=== PATIENT | male | born 1950 | race Caucasian/White ===

== ENCOUNTER 2018-09-11 13:14 | Inpatient (IN) | payer OTHER, MEDICARE ==
--- NOTE | 2018-09-13 06:15 | PDHPUP ---
History & Physical Update H&P update statement: This history and physical update is based on an assessment of the patient which was completed after admission or registration (within 24 hours), but prior to the surgery/procedure. H&P update: H&P reviewed & patient examined, no change in patient's condition since H&P completed
[2018-09-13] MEDS ORDERED: ALBUTEROL 60 PUFFS/8 GM MDI IH PRN (07:51)
[2018-09-13] MEDS ORDERED: ACETAMINOPHEN 500 MG TAB PO ONE (07:51)
[2018-09-13] MEDS ORDERED: AZITHROMYCIN 250 MG TAB PO SCH (07:51)
[2018-09-13] MEDS ORDERED: GABAPENTIN 300 MG CAP PO ONE (07:51)
[2018-09-13] MEDS ORDERED: ceFAZolin 2 GM/DEXTROSE 100 ML IV ONE (07:51)
[2018-09-13] MEDS ORDERED: LR 1,000 ML IV ONE (07:57)
[2018-09-13] MEDS ORDERED: THROMBIN (BOVINE) 20,000 UNIT VIAL TP ONE (07:57)
[2018-09-13] MEDS ORDERED: BUPIVACAINE 0.25% 30 ML SDV ONE (07:57)
[2018-09-13] MEDS ORDERED: CHLORHEXIDINE GLUC HIBICLENS 118 ML BTL TP ONE (07:57)
[2018-09-13] MEDS ORDERED: EPINEPHrine 1 MG/ML INJ ONE (07:58)
[2018-09-13] MEDS ORDERED: FAMOTIDINE 20 MG TAB PO SCH (09:00)
[2018-09-13] MEDS ORDERED: TIOTROPIUM INHALER 18 MCG/DOSE 5 DOSE/MDI IH SCH (09:00)
--- NOTE | 2018-09-13 09:40 | PDANEPAE ---
ANE History of Present Illness spondylo s/f TLIF ANE Past Medical History - Cardiovascular History Hx Hypertension: Yes Hx Arrhythmias: No Hx Chest Pain: No Hx Coronary Artery / Peripheral Vascular Disease: No Hx CHF / Valvular Disease: No Hx Palpitations: No Cardiovascular History Comment: RAYNAUDS - Pulmonary History Hx COPD: Yes Hx Asthma/Reactive Airway Disease: No Hx Recent Upper Respiratory Infection: No Hx Oxygen in Use at Home: No Hx Sleep Apnea: No Sleep Apnea Screening Result - Last Documented: Negative Pulmonary History Comment: INHALERS - Neurologic History Hx Cerebrovascular Accident: No Hx Seizures: No Hx Dementia: No - Endocrine History Hx Diabetes: Yes Endocrine History Comment: METFORMIN - Renal History Hx Renal Disorders: No - Liver History Hx Hepatic Disorders: No - Neurological & Psychiatric Hx Hx Neurological and Psychiatric Disorders: No - Cancer History Hx Cancer: No - Congenital Disorder History Hx Congenital Disorders: No - GI History Hx Gastrointestinal Disorders: Yes Gastrointestinal History Comment: FAMOTIDINE FOR STOMACH IRRITATION - Other Health History Other Health History: SCLERADERMA - Chronic Pain History Chronic Pain: Yes (BACK,HIP & LEG) - Surgical History Prior Surgeries: NO SURGERIES ANE Review of Systems Review of Systems: - Exercise capacity METS (RN): 3 METS ANE Patient History - Allergies Allergies/Adverse Reactions: Penicillins Allergy (Verified 08/31/18 10:19) Hives simvastatin [From Zocor] Allergy (Verified 08/31/18 10:19) Joints Hurt - Home Medications Home medications: home medication list seen and reviewed Home Medications: Acetaminophen [Tylenol 325mg (*)] 325 mg PO Q6HRS PRN 08/31/18 [Last Taken 09/12] Albuterol [Proventil Inhaler HFA (*)] 1 - 2 puffs IH Q4H PRN 08/31/18 [Last Taken 09/13/18] Atorvastatin Calcium [Lipitor 20 mg (*)] 20 mg PO DAILY 08/31/18 [Last Taken ] Azithromycin 250 mg PO SUWE 08/31/18 [Last Taken 09/12/18] C/E/Zn/Cu/OM3/DHA/EPA/LUT/ZEAX [Preservision Areds 2 Softgel] 1 each PO DAILY [Last Taken 1 Week Ago ~09/06/18] DULoxetine [Cymbalta 20 MG (RX)] 20 mg PO DAILY 08/31/18 [Last Taken 09/13/18] Famotidine [Pepcid 20 MG (*)] 20 mg PO DAILY 08/31/18 [Last Taken 09/13/18] Gabapentin [Neurontin 300 MG (*)] 300 mg PO HS 08/31/18 [Last Taken 09/12/18] Ibuprofen [Motrin (*)] 200 mg PO Q8HRS PRN 08/31/18 [Last Taken 1 Week Ago ~] Mometasone/Formoterol [Dulera 200 Mcg/5 Mcg Inhaler] 2 puffs IH BID 08/31/18 [ Last Taken 09/13/18] Tamsulosin HCl [Flomax 0.4 MG (*)] 0.4 mg PO HS 08/31/18 [Last Taken 09/12/18] Tiotropium Inhaler [Spiriva Inhaler] 2 inh IH DAILY 08/31/18 [Last Taken ] amLODIPine BESYLATE [Norvasc 2.5 mg (*)] 2.5 mg PO DAILY 08/31/18 [Last Taken ] metFORMIN HCL [Glucophage 500 mg (*)] 500 mg PO BIDMEAL 08/31/18 [Last Taken ] predniSONE [predniSONE] 10 mg PO DAILY 08/31/18 [Last Taken 09/13/18] - NPO status NPO Status: no food or drink >8 hours NPO Since - Liquids (Date): 09/12/18 NPO Since - Liquids (Time): 23:59 NPO Since - Solids (Date): 09/12/18 NPO Since - Solids (Time): 17:00 - Anes Hx Anes Hx: no prior problems - Smoking Hx Smoking Status: Former smoker - Alcohol Use Alcohol Use: None - Family Anes Hx Family Anes Hx: none Family Hx Anesthesia Complications: NONE ANE Labs/Vital Signs - Labs - CBC WBC: in chart, reviewed and okay - Labs - BMP Sodium: in chart, ok - Vital Signs Blood Pressure: 164/90 Heart Rate: 80 Respiratory Rate: 16 O2 Sat (%): 97 Height: 167.64 cm Weight: 58.967 kg ANE Physical Exam - Airway Neck exam: FROM Mallampati Score: Class 2 Mouth exam: normal dental/mouth exam - Pulmonary Pulmonary: expiratory wheeze - Cardiovascular Cardiovascular: regular rate and rhythym - ASA Status ASA Status: III ANE Anesthesia Plan Anesthesia Plan: general endotracheal anesthesia
[2018-09-13] MEDS ORDERED: MAGNESIUM HYDROXIDE 30 ML UDCUP PO PRN (09:44)
[2018-09-13] MEDS ORDERED: NALOXONE HCL 0.4 MG/ML INJ IVP PRN ×2 (09:44→14:34)
[2018-09-13] MEDS ORDERED: HYDROmorphONE/DILAUDID 6 MG/30 ML PCA IV PRN (09:44)
[2018-09-13] MEDS ORDERED: BISACODYL 10 MG SUPP PR PRN (09:44)
[2018-09-13] MEDS ORDERED: HYDROmorphONE/DILAUDID 1 MG/ML INJ IVP PRN (09:44)
[2018-09-13] MEDS ORDERED: ONDANSETRON DISINTEGRATING 4 MG TAB PO PRN (09:44)
[2018-09-13] MEDS ORDERED: ONDANSETRON 4 MG/2 ML VIAL IVP PRN ×2 (09:44→14:34)
[2018-09-13] MEDS ORDERED: LACTULOSE 20 GM/30 ML UDCUP PO PRN (09:44)
[2018-09-13] MEDS ORDERED: diphenhydrAMINE 25 MG CAP PO PRN (09:44)
[2018-09-13] MEDS ORDERED: NS 1,000 ML IV SCH (09:45)
[2018-09-13] MEDS ORDERED: fentaNYL 100 MCG/2 ML INJ ONE ×3 (09:54→16:51)
[2018-09-13] MEDS ORDERED: REMIFENTANIL HCL 1 MG VIAL ONE ×2 (09:54→12:42)
[2018-09-13] MEDS ORDERED: PROPOFOL/EMULSION 500 MG/50 ML BOTTLE IV ONE ×2 (09:54→12:42)
[2018-09-13] MEDS ORDERED: LIDOCAINE 2% 100 MG/5 ML SYR ONE (09:57)
[2018-09-13] MEDS ORDERED: LIDOCAINE HCL 160 MG/4 ML LTA KIT TP ONE (09:59)
[2018-09-13] MEDS ORDERED: ePHEDrine SULFATE 25 MG/5 ML SYR ONE (10:03)
[2018-09-13] MEDS ORDERED: PHENYLEPHRINE 10 MG/ML SDV ONE ×2 (10:17→13:04)
[2018-09-13] MEDS ORDERED: DEXAMETHASONE 4 MG/ML VIAL ONE ×2 (11:48)
[2018-09-13] MEDS ORDERED: ONDANSETRON 4 MG/2 ML VIAL ONE (11:48)
--- NOTE | 2018-09-13 14:02 | PDMN ---
Medical Necessity Medical necessity: [facility] IP only surgery; cpt 27363 L4/S1 TLIF
[2018-09-13] MEDS ORDERED: DEXAMETHASONE 4 MG/ML VIAL IVP PRN (14:34)
[2018-09-13] MEDS ORDERED: DIAZEPAM 5 MG/ML 1 ML SYR IVP PRN (14:34)
[2018-09-13] MEDS ORDERED: MEPERIDINE 25 MG/0.5 ML AMP IVP PRN (14:34)
[2018-09-13] MEDS ORDERED: HYDROCODONE/APAP 5/325 TAB PO PRN (14:34)
[2018-09-13] MEDS ORDERED: ACETAMINOPHEN 500 MG TAB PO PRN (14:34)
[2018-09-13] MEDS ORDERED: PHENYLEPHRINE HCL 100 MCG/ML SYR IVP PRN (14:34)
[2018-09-13] MEDS ORDERED: METOCLOPRAMIDE 10 MG/2 ML VIAL IVP PRN (14:34)
[2018-09-13] MEDS ORDERED: ALBUTEROL 3 ML DEYVIAL IH PRN (14:34)
[2018-09-13] MEDS ORDERED: LR 500 ML IV PRN (14:34)
[2018-09-13] MEDS ORDERED: oxyCODONE IR 5 MG TAB PO PRN (14:34)
[2018-09-13] MEDS ORDERED: PROMETHAZINE HCL 25 MG/ML INJ IVP PRN (14:34)
[2018-09-13] MEDS ORDERED: ENALAPRILAT DIHYDRATE 1.25 MG/ML VIAL IVP PRN (14:34)
--- NOTE | 2018-09-13 14:53 | POSTOPPROG ---
Post Op Note Date of Operation: 09/13/18 Surgeon: Diego Worley Billet Grinder: FROYLAN Jansen Anesthesiologist: MD Qasim Anesthesia: GET(General Endotracheal), Local (Specify) Pre-op Diagnosis: lumbar stenosis L4-S1 Post-op Diagnosis: lumbar stenosis L4-S1 Indication: LE pain/LBP Procedure: L4/5 and L5/S1 TLIF Findings: see op report Inf/Abcess present in the surg proc area at time of surgery?: No Depth: Deep Incisional (Fascial) EBL: 100-500 Total fluids administered: see anesthesia record Complications: none Bowel Protocol: Yes Clean Closure Performed: Yes Drains: Reynaldo Mendoza
--- NOTE | 2018-09-13 14:57 | SOAPPROG ---
SOAP Progress Note Assessment/Plan: Post Op Visit: S: Awake and alert. NAD. Pt with expected lower back pain O: AFVSS/PERRLA/EOMI no droop CN 2-12 grossly intact +lt touch MOR x [address] A/P: 68 yo male that is s/p TLIF at L4/5 and L5/S1 -orders in place -call with any questions or concerns -pt seen by Dr Worley as well -PT/OT -brace when out of bed -warning signs given Objective: Vital Signs Temp Pulse Resp BP Pulse Ox 36.5 C 80 16 164/90 H 97 09/13/18 08:19 09/13/18 09:40 09/13/18 09:40 09/13/18 09:40 09/13/18 09:40 ICD10 Worksheet Patient Problems: Problems Problem Status Onset Arthrodesis status Acute Lumbar radicular pain Acute Lumbar stenosis Acute - ICD10 Problem Qualifiers (1) Lumbar stenosis (2) Lumbar radicular pain (3) Arthrodesis status
[2018-09-13] MEDS: fentaNYL 100 MCG/2 ML INJ IVP PRN ×3 (15:16→16:53)
[2018-09-13] MEDS ORDERED: DIAZEPAM 5 MG/ML 1 ML SYR ONE (15:28)
[2018-09-13] MEDS: Mometasone/Formoterol [Dulera 200 Mcg/5 Mcg Inhaler] IH SCH ×2 (15:45→22:00)
[2018-09-13] MEDS ORDERED: HYDROmorphONE/DILAUDID 2 MG/ML INJ ONE (16:15)
[2018-09-13] MEDS ORDERED: oxyCODONE IR 5 MG TAB ONE (16:16)
[2018-09-13] MEDS ORDERED: HYDROmorphONE/DILAUDID 2 MG/ML INJ IVP PRN (16:30)
--- NOTE | 2018-09-13 17:29 | POSTANESTH ---
Post Anesthetic Evaluation Cardiovascular Status: Normal, Stable Respiratory Status: Normal, Stable, Tx Decrease in SpO2 Level of Consciousness/Mental Status: Can Participate in Eval Pain Control: Adequate, Prn Tx Ordered Nausea/Vomiting Control: Adequate, Prn Tx Ordered Complications Possibly Related to Anesthesia: None Noted
[2018-09-13] MEDS ORDERED: D50W 25 GM/50 ML SYR IVP PRN (18:00)
[2018-09-13] MEDS ORDERED: NS 250 ML IV ONE (18:01)
[2018-09-13] MEDS: METHOCARBAMOL 750 MG TAB PO PRN (18:07)
[2018-09-13] MEDS: HYDROCODONE/APAP 5/325 TAB PO PRN (18:07)
[2018-09-13] MEDS: ceFAZolin 2 GM/DEXTROSE 100 ML IV SCH (18:07)
[2018-09-13] MEDS: PRESERVISION AREDS2 FORMULA EYE VIT 1 EACH PO SCH (18:22)
[2018-09-13] MEDS: predniSONE 10 MG TAB PO SCH (18:22)
[2018-09-13] MEDS: DULoxetine 20 MG CAP PO SCH (18:22)
[2018-09-13] MEDS: ATORVASTATIN CALCIUM 20 MG TAB PO SCH (18:22)
[2018-09-13] MEDS: INSULIN LISPRO 100 UNIT/ML SC SCH (18:23)
--- NOTE | 2018-09-13 18:31 | GOP ---
[f rep st] OPERATIVE REPORT DATE OF OPERATION: SURGEON: Natalia Worley MD NEUROSURGEON: Natalia Worley MD. TEST TECH: Siddhartha Jansen PA-C. PREOPERATIVE DIAGNOSIS: Lumbar degenerative disk disease, L4-5, L5-S1; severe bilateral lumbosacral radiculopathy, left more than right; severe spinal stenosis at L4-5; severe bilateral facet arthropathy L4-5; severe right foraminal stenosis L4-5; severe left foraminal stenosis L5-S1. POSTOPERATIVE DIAGNOSIS: Lumbar degenerative disk disease, L4-5, L5-S1; severe bilateral lumbosacral radiculopathy, left more than right; severe spinal stenosis at L4-5; severe bilateral facet arthropathy L4-5; severe right foraminal stenosis L4-5; severe left foraminal stenosis L5-S1. PROCEDURE PERFORMED: Posterolateral intervertebral arthrodesis, L4-5, L5-S1 and bilateral decompressions, L4-5, L5-S1 (35105, [id number]); posterior segmental instrumentation L4-L5-S1 (90764); placement of biomechanical intervertebral device L4-5, L5-S1 (58533 x2); same-incision bone graft harvest, microscope, spinal stereotaxis. FINDINGS: ESTIMATED BLOOD LOSS: 200 mL. INDICATIONS: The patient came to me with severe bilateral lumbosacral radiculopathy. An MRI that demonstrated really remarkably terrible degenerative disk disease at L4-5, L5-S1 with degenerative right-sided tilt of L4 on L5, with very severe right foraminal stenosis. There is severe left foraminal stenosis at L5-S1. An MRI demonstrated what appeared to be a free- disk fragment herniation on the left at L5-S1. I suggested a 2-level fusion to try to get some elevation of his vertebral bodies off one another at L4-5, 5-1 to open up the neural foramen. He did have some measure of stenosis at L3-4, but I characterized as mild to moderate and was not sufficient to warrant surgery, but I discussed with him the possibility that he may require surgery in the future at that level. He had a history of nicotine use and was using nicotine because of a prior smoking habit, but he was able to successfully stop using nicotine prior to the surgery and we tested him in this regard. The risks of pseudoarthrosis, adjacent segment disease, nerve injury, continued symptoms, CSF leak, infection, screw and hardware malposition and malfunction were discussed. He understood these risks and he did want to proceed with surgery. DESCRIPTION OF PROCEDURE: The patient was taken to the operating room and placed in a supine position. General anesthesia was begun and he was flipped prone onto the Reynaldo table. Care was taken to pad all points of contact. His back was sterilely prepped and draped in the usual fashion. A localizing x- ray was taken. We made a midline incision. It was about 3.5 to 4 cm in length above the L4-5, 5-1 interspace. The subcutaneous tissue was dissected using Bovie cautery down through the fascia and a subperiosteal dissection was made down the inferior lamina at L3. The lamina of L4, L5 and S1 was exposed. The S1 lamina was partially lumbarized and there appeared to be a space between the S1 and S2 laminas. I did not thoroughly probe this area below our surgical exposure, but did appear to have a lumbarized S1 lamina. We denuded the bilateral hypertrophic 4-5, 5-1 facet joints, attached the Stealth reference frame and using frame of Stealth stereotaxy, placed pedicle screws bilaterally at L4-L5 and the sacrum. We then attached the Stealth reference frame and using frame of Stealth stereotaxy, placed pedicle screws bilaterally at L4-L5 and the sacrum. They all stimulated at acceptable levels. The right S1 pedicle was exceptionally large. The left S1 pedicle was nearly as large, but I chose a 6.5 on the left, but on the right I chose a 7.5 mm pedicle screw. There was good bony purchase, but his bone quality did seem somewhat soft and possibly due to chronic steroid use. We put all 6 screws in, performed an O- arm spin and all the screws were in excellent position. They all stimulated acceptable levels. We ended up driving the left L4 screw in slightly deeper after the spin was made by about 6 to 7 mm deeper. We did verify on imaging that we had this kind of leeway on the left at L4. Took 50 mm rods and gently distracted between L4-5 and S1. We did not vigorously distract between these vertebral bodies because of his somewhat softer bone, but with they were easily moved and I was happy with the position. We locked the screws according to company specification in this position. We then harvested the complete L5 spinous process and the inferior L4 spinous process for autologous grafting purposes. Operating microscope was introduced. We drilled bilateral laminectomies at L4-5, L5-S1, and there was very severe spinal stenosis present. Under the microscope, we decompressed the thecal sac centrally initially and then worked our way into the lateral recesses on each side. We did not have really any difficulty at L5-S1, but at L4-5, there was significant dural adhesions to the hypertrophic facet joints, as one can find from longstanding severe stenosis. We were able to eventually free these and dissect them free and we got great decompressions at this level. We completely removed the left L4-5 and L5-S1 facet joint, decompressed the exiting L4 nerve root on the left, the exiting L5 nerve root on the left and then we spent a considerable time looking and inspecting the area around the left L5 nerve root at the 5-1 level where it exited the spine. We incised the 5-1 disk and removed some of the disk, and the MRI suggested there was a free fragment disk herniation underneath the 5 root, and it was quite interesting, the left 5 nerve root appeared either quite thickened for encased in scar. We were able to dissect it free at L4-5 and follow it in the neural foramen, but I did not find a large free fragment disk underneath it. There was some disk emanating from the 5-1 disk that did appear to go slightly rostrally towards this L5 nerve on the left and we removed this material. We were able to sweep a ball- tip probe on either side, both the rostral and caudal side of the nerve root and on the dorsal and ventral side of the nerve root out in the neural foramina. We had a great decompression of the left L5 nerve, but it did have an unusual appearance. It was extremely large and thick and it appeared that we had a great decompression. Later in the case, I reinspected this area and we saw an occasional burst of firing from the 5 root as I was dissecting it with the ball-tipped probe, but we saw no train firing or evidence of injury potentials. We ultimately then swept the left S1 nerve root medially, incised the 5-1 disk, removed the disk and the cartilaginous endplates. We roughened the subchondral bone to create arthrodesis at 5-1. We did likewise from the left side at L4-5, incising the 4-5 disk and removing the disk and the cartilaginous endplates completely. We roughened the subchondral bone to create arthrodesis. We then sized the space with trials, which we were able to insert without difficulty and chose 7 x 28 mm devices. We packed the disk space with BMP and bone autograft and then followed this with the two 7 x 28 mm devices, which we were able to insert really without difficulty. They were expanded in the ventral disk space and I was very happy with their positioning. We then irrigated with antibiotic saline solution, decorticated all the remaining bone posterolaterally bilaterally to create arthrodesis and placed bone morphogenic protein and bone autograft posterolaterally bilaterally followed by a subfascial drain. We then closed the incision in multiple layers using Vicryl sutures. A running PDS was placed in the skin itself. The patient was reversed from anesthesia, extubated and transferred to the recovery room in stable condition. There were no complications. COMPLICATIONS: None. INSTRUMENTATION USED: Medtronic Solara 5.5 mm system with a 50 mm rods. We used 4 mg of bone morphogenic protein. We used two 7 x 28 mm Elevate cages. We used 6.5 x 45 mm screws throughout except the right S1 pedicle, where we used a 7.5 mm screw. /[id number]/MODL MTDD
--- NOTE | 2018-09-13 18:41 | GCON ---
[f rep st] CONSULTATION REFERRING PHYSICIAN: Dr. Worley REASON FOR CONSULTATION: Medical management. HISTORY OF PRESENT ILLNESS: The patient is a 68-year-old gentleman who has a history of COPD, who is chronic steroid dependent, as well as scleroderma and Raynaud disease. He is status post a TLIF of L4-5 and L5 and S1, due to chronic back pain. 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 Pain had been ongoing bilaterally in his hips and down his legs. He has participated in physical therapy and has had steroid injections without significant help. He also has ongoing neuropathy in which he takes Cymbalta and gabapentin. During my interview, he is back up from back surgery. He is not complaining of any pain. Overall, he is feeling well and is hungry. He denies any chest pain, is chronically short of breath with activity. No changes in vision, weight, regular bowel movements, no issues with urinary retention, frequency, urgency. PAST MEDICAL HISTORY: 1. Steroid-induced diabetes, on metformin. 2. Chronic COPD, on prednisone and p.r.n. azithromycin. 3. Scleroderma. 4. Raynaud disease. PAST SURGICAL HISTORY: None. SOCIAL HISTORY: He is a former smoker for 20 years; quit smoking greater than 25 years ago. He chews nicotine gum, but recently has quit using this. He does not drink alcohol. for 39 years. He has 1 daughter and 1 granddaughter. He quit his job approximately a year and a half ago. He ran heavy outdoor equipment. FAMILY HISTORY: His mother of complications of colon cancer and alcohol use in her 60s. His father in his mid 60s from complications of alcohol. ALLERGIES: Penicillin and simvastatin. HOME MEDICATIONS: Prednisone 10 mg daily, Norvasc 2.5 mg daily, Pepcid 20 mg daily, Lipitor 20 mg daily, metformin 500 mg p.o. twice daily, Spiriva inhaler 2 inhalations daily, Flomax 0.4 mg p.o. at bedtime, Neurontin 300 mg at bedtime , Cymbalta 20 mg daily, azithromycin 250 mg p.o. Sundays and Tuesday, Dulera 2 puffs inhalation twice daily, ibuprofen 200 mg q.8 hours p.r.n., albuterol inhaler 1 to 2 puffs q.4 hours p.r.n., and Tylenol 325 mg q.6 hours p.r.n. REVIEW OF SYSTEMS: A 10-point review of system was performed and was negative other than pertinent positives in the HPI and past medical history. PHYSICAL EXAM: GENERAL: The patient is a 68-year-old male who does not appear to be in any significant distress. VITAL SIGNS: Blood pressure is 82/59, heart rate of 101, respiratory rate of 18, O2 sats on 3 L are 90%, temperature is 36.9 Celsius. EYES: He is wearing glasses. Pupils are equal and reactive. EOMs are intact. No conjunctival injection noted. ENT: Normal ears. Hearing intact. NECK: Trachea is midline. CARDIOVASCULAR: He is in a regular rate. No murmur, rubs, or gallops noted. CHEST/LUNGS: Normal respiratory effort without wheezing, rales, or rhonchi. Diminished at the bases. ABDOMEN: Soft, nontender. SKIN: Warm, dry and intact. I did not evaluate his back area. He is just up from surgery. MUSCULOSKELETAL: Again, not evaluated. He has significant coolness to his hands. His fingers are firm and rounded with very poor cap refill. PSYCHIATRIC: He is alert and oriented. Normal mood and affect. Normal judgment, insight and memory. DATA: Reviewed. Chemistry shows glucose of 133. No other labs are noted on this hospital stay. ASSESSMENT/PLAN: 1. Chronic back pain with neuropathy. He is status post a transforaminal lumbar interbody fusion. He is very hopeful this will help with his activity level. 2. Pain. Due to the above, pain medications have been written out per Neurosurgery. 3. Hyperglycemia secondary to prednisone use. He was never really truly diagnosed with diabetes type 2. Will hold his metformin until labs are checked in the morning. Will place him on a sliding scale. 4. Chronic obstructive pulmonary disease. Will continue Spiriva. He took his prednisone today. I doubt he will need a stress dose unless he continues to be hypotensive. Will add nebulizers and incentive spirometry. 5. Hypotension. He is just back up from postanesthesia care unit. Suspect this could be related to narcotics. Will follow. Will give a fluid bolus now. 6. Hyperlipidemia. Statin therapy. 7. Deep venous thrombosis prophylaxis per Neurosurgery. 8. Raynaud disease. He is on [facility] for this. Will place parameters as when to hold this. 9. Scleroderma. Is seen by Dr Delong in the outpatient setting. 10. Code status: Full. Thank you for this consultation with the patient. The hospitalist team will continue to follow him during his hospital stay. /[id number]/MODL MTDD
[2018-09-13] MEDS: TAMSULOSIN HCL 0.4 MG CAP PO SCH (21:21)
[2018-09-13] MEDS: GABAPENTIN 300 MG CAP PO SCH (21:22)
[2018-09-13] MEDS: SENNOSIDES/DOCUSATE SODIUM TAB PO SCH (21:22)
[2018-09-13] MEDS: IPRATROPIUM/ALBUTEROL 3 ML DEYVIAL IH SCH (21:58)
[2018-09-14] MEDS: ceFAZolin 2 GM/DEXTROSE 100 ML IV SCH (01:39)
[2018-09-14] MEDS: HYDROCODONE/APAP 5/325 TAB PO PRN ×5 (01:42→22:58)
[2018-09-14 05:14] LABS: PLATELET COUNT 247 10^3/uL (150-400)
[2018-09-14] MEDS: IPRATROPIUM/ALBUTEROL 3 ML DEYVIAL IH SCH ×4 (07:06→23:43)
--- NOTE | 2018-09-14 07:52 | NEUSURGPN ---
Date of Surgery: 09/13/18 Post Op Day: 1 Assessment/Plan: Assessment: 68 yo male that is s/p TLIF at L4/5 and L5/S1 POD #1 Plan: -s/p L spine surgery: doing well this am. Pt states legs feel better. He has some expected lower back pain -post op xrays pending today -orders in place -call with any questions or concerns -pt seen by Dr Worley as well -PT/OT-CPM -brace when out of bed -SANJANA to likely come out later today -d/w pt and -warning signs given Subjective: Awake and alert. NAD. Eating/drinking and voiding. No f/c/n/v/d. Pt with expected lower back pain. Legs feel good Objective: Awake and alert. NAD AFVSS/PERRLA/EOMI no droop CN 2-12 grossly intact +lt touch 5/5 BUE/BLE = CDI SANJANA in place Neuro Check Frequency: per routine Urinary Catheter in Place: No - Physician Discussed Patient with DrAnnette: Meir Patient Seen by : Meir Neurosurgery Physical Exam - Vitals, I&O, Labs I and O 09/13/18 09/14/18 09/15/18 05:59 05:59 05:59 Intake Total 4195 Output Total 1730 2800 Balance 2465 -2800 Weight 58.967 kg Intake: Oral (ml) 350 IV Intake (ml) 2400 IV Infused (ml) 1445 Ns 1,000 ml @ 75 mls/hr 990 IV CONT JOSEFINA Rx#: [id number] Ns 250 ml @ 250 mls/hr IV 250 ONCE ONE Rx#:[id number] ceFAZolin 2 GM/DEXTROSE 205 100 ml @ 200 mls/hr IV Q8H [facility] Rx#:[id number] Output: Urine (ml) 1000 2800 Catheter 1000 2800 Estimated Blood Loss (ml) 250 SANJANA Drain Output (ml) 480 Back Reynaldo Mendoza 480 Vital Signs Temp Pulse Resp BP Pulse Ox 36.7 C 71 17 95/54 L 95 09/14/18 07:32 09/14/18 07:32 09/14/18 07:32 09/14/18 07:32 09/14/18 07:32 Laboratory Results 09/14/18 04:23 09/14/18 04:23 ICD10 Worksheet Patient Problems: Problems Problem Status Onset Arthrodesis status Acute Lumbar radicular pain Acute Lumbar stenosis Acute - ICD10 Problem Qualifiers (1) Lumbar stenosis (2) Lumbar radicular pain (3) Arthrodesis status
[2018-09-14] MEDS: METHOCARBAMOL 750 MG TAB PO PRN ×2 (07:53→15:11)
[2018-09-14] MEDS ORDERED: metFORMIN HCL 500 MG TAB PO SCH (08:00)
[2018-09-14] MEDS: INSULIN LISPRO 100 UNIT/ML SC SCH ×3 (08:15→18:24)
[2018-09-14] MEDS: DULoxetine 20 MG CAP PO SCH (08:50)
[2018-09-14] MEDS: FAMOTIDINE 20 MG TAB PO SCH (08:50)
[2018-09-14] MEDS: ATORVASTATIN CALCIUM 20 MG TAB PO SCH (08:51)
[2018-09-14] MEDS: SENNOSIDES/DOCUSATE SODIUM TAB PO SCH ×2 (08:51→22:54)
[2018-09-14] MEDS: PRESERVISION AREDS2 FORMULA EYE VIT 1 EACH PO SCH (08:51)
[2018-09-14] MEDS: predniSONE 10 MG TAB PO SCH (08:54)
[2018-09-14] MEDS: POLYETHYLENE GLYCOL 3350 17 GM PKT PO PRN (08:55)
[2018-09-14] MEDS: oxyCODONE IR 5 MG TAB PO PRN ×4 (08:55→18:34)
[2018-09-14] MEDS: Mometasone/Formoterol [Dulera 200 Mcg/5 Mcg Inhaler] IH SCH ×2 (08:56→17:04)
[2018-09-14] MEDS: SPIRIVA RESPIMAT 2.5MCG/ACTUATION IH SCH (10:52)
--- NOTE | 2018-09-14 13:57 | ASMTCMCOM ---
CM Note CM Note Notes: Pt had planned spinal surgery, resides with [facility]. OT/PT rec home. [facility] and [facility]. Referral sent to [facility] in [employer]. [facility] has protocol with MD so no orders required at d/c. CM to follow. D/c plan of care: Home with [facility] HC PT Date Signed: 09/14/2018 01:56 PM Electronically Signed By:KATHERINE Garcia
--- NOTE | 2018-09-14 14:23 | HOSPPROG ---
Hospitalist Progress Note Assessment/Plan: 68 yo M w copd, chronic steroids pod from TLIF chronic steroids: dose high enough for adrenal suppression bp soft low threshold for stress dose steroids copd: stable continue home meds proph: rec lmwh when safe from neurosurgical perspective hypoxia: rec IS likely mechanical given brace Subjective: case d/w sohan muller, neurosurgery Objective: Vital Signs Temp Pulse Resp BP Pulse Ox 36.6 C 79 18 109/63 97 09/14/18 11:16 09/14/18 11:16 09/14/18 11:16 09/14/18 11:16 09/14/18 11:16 Laboratory Results 09/14/18 04:23 09/14/18 04:23 09/13/18 09/14/18 09/15/18 05:59 05:59 05:59 Intake Total 4195 Output Total 1730 2830 Balance 2465 -2830 - Physical Exam Constitutional: no apparent distress, appears nourished Eyes: PERRL, anicteric sclera Ears, Nose, Mouth, Throat: moist mucous membranes, hearing normal Cardiovascular: regular rate and rhythym, no murmur, rub, or gallop Respiratory: no respiratory distress, No expiratory wheeze, No inspiratory crackles Gastrointestinal: normoactive bowel sounds, soft, non-tender abdomen Genitourinary: no bladder fullness, No trejo in urethra Skin: warm, normal color Musculoskeletal: full muscle strength Neurologic: AAOx3 ICD10 Worksheet Patient Problems: Problems Problem Status Onset Arthrodesis status Acute Lumbar radicular pain Acute Lumbar stenosis Acute
[2018-09-14] MEDS: GABAPENTIN 300 MG CAP PO SCH (22:53)
[2018-09-14] MEDS: TAMSULOSIN HCL 0.4 MG CAP PO SCH (22:54)
[2018-09-15] MEDS: oxyCODONE IR 5 MG TAB PO PRN ×2 (02:21→20:08)
[2018-09-15] MEDS: Mometasone/Formoterol [Dulera 200 Mcg/5 Mcg Inhaler] IH SCH ×2 (05:31→22:29)
[2018-09-15] MEDS: IPRATROPIUM/ALBUTEROL 3 ML DEYVIAL IH SCH ×4 (05:48→22:27)
[2018-09-15] MEDS: INSULIN LISPRO 100 UNIT/ML SC SCH ×3 (08:06→17:45)
[2018-09-15] MEDS: POLYETHYLENE GLYCOL 3350 17 GM PKT PO PRN (08:08)
[2018-09-15] MEDS: SENNOSIDES/DOCUSATE SODIUM TAB PO SCH ×2 (08:09→20:01)
[2018-09-15] MEDS: ATORVASTATIN CALCIUM 20 MG TAB PO SCH (08:09)
[2018-09-15] MEDS: PRESERVISION AREDS2 FORMULA EYE VIT 1 EACH PO SCH (08:09)
[2018-09-15] MEDS: DULoxetine 20 MG CAP PO SCH (08:09)
[2018-09-15] MEDS: METHOCARBAMOL 750 MG TAB PO PRN ×3 (08:10→18:46)
[2018-09-15] MEDS: predniSONE 10 MG TAB PO SCH (08:11)
[2018-09-15] MEDS: FAMOTIDINE 20 MG TAB PO SCH (08:11)
[2018-09-15] MEDS: SPIRIVA RESPIMAT 2.5MCG/ACTUATION IH SCH (08:14)
[2018-09-15] MEDS: HYDROCODONE/APAP 5/325 TAB PO PRN ×3 (08:24→18:46)
--- NOTE | 2018-09-15 11:04 | NEUSURGPN ---
Date of Surgery: 09/13/18 Post Op Day: 2 Assessment/Plan: 68 yo male with MMP that is s/p TLIF at L4/5 and L5/S1 POD #2. Post op films with stable hardware, pt light headed and reported low BS this am, likely from over correction. Plan: -s/p L spine surgery: expected low back pain. -PT/OT-CPM -brace when out of bed -follow medicine recs for low BP, low BS -dispo planning home later today if medicine approves. -d/w pt and --call with any questions or concerns dw dr Worley Subjective: up in chair feeling light headed this morning, back pain manageable, no c/o leg pain. Objective: upright in chair, NAD VS noted, bp low, mat 62 speech clear and fluent no facial droop MAEx4, 5/5= SILT incision dressed, CDI. - Physician Discussed Patient with : [facility] Physical Exam - Vitals, I&O, Labs I and O 09/14/18 09/15/18 09/16/18 05:59 05:59 05:59 Intake Total 4195 500 Output Total 1730 3605 200 Balance 2465 -3105 -200 Weight 58.967 kg Intake: Oral (ml) 350 500 IV Intake (ml) 2400 IV Infused (ml) 1445 Ns 1,000 ml @ 75 mls/hr 990 IV CONT JOSEFINA Rx#: [id number] Ns 250 ml @ 250 mls/hr IV 250 ONCE ONE Rx#:[id number] ceFAZolin 2 GM/DEXTROSE 205 100 ml @ 200 mls/hr IV Q8H [facility] Rx#:[id number] Output: Urine (ml) 1000 3500 200 Catheter 1000 2950 Urinal 550 200 Estimated Blood Loss (ml) 250 SANJANA Drain Output (ml) 480 105 Back Reynaldo Mendoza 480 105 Other: Number of Voids Catheter 1 Toilet 1 Urinal 1 1 Vital Signs Temp Pulse Resp BP Pulse Ox 36.9 C 90 16 90/50 L 90 L 09/15/18 07:42 09/15/18 10:26 09/15/18 10:26 09/15/18 08:20 09/15/18 10:26 Laboratory Results 09/14/18 04:23 09/14/18 04:23 ICD10 Worksheet Patient Problems: Problems Problem Status Onset Arthrodesis status Acute Lumbar radicular pain Acute Lumbar stenosis Acute
--- NOTE | 2018-09-15 14:31 | ASMTCMCOM ---
CM Note CM Note Notes: Cindy from [facility] HH on site today - confirmed we are still set for d/c home with [facility] PT. Per protocol with MD, no orders needed upon d/c for [facility]. Cindy does request we send any pertinent information on day of d/c. Plan: [facility] PT Date Signed: 09/15/2018 02:30 PM Electronically Signed By:Subha Berman RN
[2018-09-15] MEDS ORDERED: predniSONE 20 MG TAB PO ONE (14:58)
--- NOTE | 2018-09-15 15:02 | HOSPPROG ---
Hospitalist Progress Note Assessment/Plan: 68 yo M w copd, chronic steroids pod from TLIF chronic steroids: dose high enough for adrenal suppression bp soft low threshold for stress dose steroids i suspect he is having symptomatic adrenal insufficiency pred 40 X 1 d/w patient copd: stable continue home meds proph: rec lmwh when safe from neurosurgical perspective hypoxia: rec IS likely mechanical given brace Subjective: case d/w neurosurgery PA. soft bp and hypoglycemia this AM Objective: Vital Signs Temp Pulse Resp BP Pulse Ox 36.9 C 86 17 105/55 L 89 L 09/15/18 11:33 09/15/18 11:33 09/15/18 11:33 09/15/18 11:33 09/15/18 11:33 Laboratory Results 09/14/18 04:23 09/14/18 04:23 09/14/18 09/15/18 09/16/18 05:59 05:59 05:59 Intake Total 4195 500 Output Total 1730 3605 200 Balance 2465 -3105 -200 - Physical Exam Constitutional: no apparent distress, appears nourished Eyes: PERRL, anicteric sclera Ears, Nose, Mouth, Throat: moist mucous membranes, hearing normal Cardiovascular: regular rate and rhythym, no murmur, rub, or gallop Respiratory: no respiratory distress, no rales or rhonchi, other (prolonged expiratory phase) Gastrointestinal: normoactive bowel sounds, soft, non-tender abdomen Genitourinary: no bladder fullness, No trejo in urethra Skin: warm, normal color Musculoskeletal: full muscle strength Neurologic: AAOx3 ICD10 Worksheet Patient Problems: Problems Problem Status Onset Arthrodesis status Acute Lumbar radicular pain Acute Lumbar stenosis Acute
[2018-09-15] MEDS: GABAPENTIN 300 MG CAP PO SCH (20:01)
[2018-09-15] MEDS: TAMSULOSIN HCL 0.4 MG CAP PO SCH (20:01)
[2018-09-16] MEDS: IPRATROPIUM/ALBUTEROL 3 ML DEYVIAL IH SCH ×2 (05:37→10:55)
[2018-09-16] MEDS: Mometasone/Formoterol [Dulera 200 Mcg/5 Mcg Inhaler] IH SCH (05:38)
[2018-09-16 07:44] VITALS: BP 108/60
--- NOTE | 2018-09-16 08:59 | NEUSURGPN ---
Date of Surgery: 09/13/18 Post Op Day: 3 Assessment/Plan: Assessment: 68 yo male with MMP that is s/p TLIF at L4/5 and L5/S1 POD #3 Plan: -post op films with stable hardware-reviewed with Dr Worley as well as the patient -s/p L spine surgery: expected low back pain-legs feel better -PT/OT-CPM -brace when out of bed-fitting well -incision is CDI -follow medicine recs for low BP, low BS-appreciate their care and input -dispo planning home later today if medicine approves-dc paperwork filled out and pending approval from IM -d/w pt and -all questions and concerns answered -call with any questions or concerns -home O2 written Subjective: Awake and alert. NAD. Eating/drinking and voiding. No f/c/n/v/d. No mary/neck/ chest/abd or gu complaints, Objective: up in chair, NAD AFVSS PERRLA/EOMI no droop speech clear and fluent MAEx4, 5/5= SILT incision dressed, CDI no SANJANA in place Neuro Check Frequency: per routine Urinary Catheter in Place: No - Physician Discussed Patient with : [facility] Physical Exam - Vitals, I&O, Labs I and O 09/15/18 09/16/18 09/17/18 05:59 05:59 05:59 Intake Total 500 Output Total 3605 775 Balance -3105 -775 Intake: Oral (ml) 500 Output: Urine (ml) 3500 775 Catheter 2950 Urinal 550 775 SANJANA Drain Output (ml) 105 Back Reynaldo Mendoza 105 Other: Number of Voids Catheter 1 Toilet 1 Urinal 1 1 Vital Signs Temp Pulse Resp BP Pulse Ox 36.9 C 83 16 108/60 96 09/16/18 07:43 09/16/18 07:43 09/16/18 07:43 09/16/18 07:43 09/16/18 07:43 Laboratory Results 09/14/18 04:23 09/14/18 04:23 ICD10 Worksheet Patient Problems: Problems Problem Status Onset Arthrodesis status Acute Lumbar radicular pain Acute Lumbar stenosis Acute - ICD10 Problem Qualifiers (1) Lumbar stenosis (2) Lumbar radicular pain (3) Arthrodesis status
[2018-09-16] MEDS ORDERED: ENOXAPARIN 40 MG/0.4 ML SYR SC SCH (09:00)
--- NOTE | 2018-09-16 09:03 | PDHOMEO2F ---
Home Oxygen Face to Face Home Orders: I certify that a physician or a nurse practitioner or physician's entry level assistant manager has had a yuvx-ve-rrsu encounter with this patient on the date of this order due to the diagnosis listed, which relates to the primary reason the patient requires home oxygen. Alternative treatments have been tried, or considered, and deemed ineffective. It is anticipated that supplemental oxygen will result in improvement with treatment. Home oxygen qualifying diagnosis: hypoxia/COPD SpO2 on room air (%): 85 Frequency of home oxygen needed: continuous Home oxygen liters per minute: 1-2 Home oxygen delivery device: nasal cannula Concentrator: Yes E-tanks for mobility and back up: Yes If ordering portable O2, is the patient mobile in the home?: Yes I certify that, based on these findings, the home oxygen is medically necessary for this patient for the following length of time. Length of time home oxygen needed: 1 month
[2018-09-16] MEDS: PRESERVISION AREDS2 FORMULA EYE VIT 1 EACH PO SCH (09:13)
[2018-09-16] MEDS: DULoxetine 20 MG CAP PO SCH (09:13)
[2018-09-16] MEDS: FAMOTIDINE 20 MG TAB PO SCH (09:13)
[2018-09-16] MEDS: SENNOSIDES/DOCUSATE SODIUM TAB PO SCH (09:14)
[2018-09-16] MEDS: METHOCARBAMOL 750 MG TAB PO PRN ×2 (09:14→13:20)
[2018-09-16] MEDS: ACETAMINOPHEN 325 MG TAB PO PRN ×2 (09:14→13:21)
[2018-09-16] MEDS: ATORVASTATIN CALCIUM 20 MG TAB PO SCH (09:14)
[2018-09-16] MEDS: predniSONE 10 MG TAB PO SCH (09:14)
[2018-09-16] MEDS: POLYETHYLENE GLYCOL 3350 17 GM PKT PO PRN (09:14)
[2018-09-16] MEDS: INSULIN LISPRO 100 UNIT/ML SC SCH ×2 (09:15→12:51)
[2018-09-16] MEDS: SPIRIVA RESPIMAT 2.5MCG/ACTUATION IH SCH (09:16)
[2018-09-16] MEDS: oxyCODONE IR 5 MG TAB PO PRN ×2 (09:23→13:20)
--- NOTE | 2018-09-16 09:29 | ASMTLACE ---
LACE Length of stay for Answers: 3 days current admission Acuity / Level of Answers: Yes Care: Did the patient have an inpatient admission? Comorbidities - select Answers: Chronic pulmonary disease all that apply Diabetes (uncontrolled or controlled) Opioid dependence / Chronic pain Other Notes: HTN # of Emergency department Answers: 0 visits in the last 6 months Score: 14 Date Signed: 09/16/2018 09:29 AM Electronically Signed By:Batsheva Cruz RN
--- NOTE | 2018-09-16 09:32 | ASMTDCNOTE ---
Case Management Discharge Discharge Order Complete? Answers: Yes Patient to Obtain Answers: Independently Medications Transportation Arranged Answers: Family/Friends Faxed Final Orders Answers: Yes Family Notified Answers: Yes Discharge Comments Notes: Patient discharged home with family. Home health through [facility]. Date Signed: 09/16/2018 09:31 AM Electronically Signed By:Batsheva Cruz RN
--- NOTE | 2018-09-16 09:49 | PDHOMEO2F ---
Home Oxygen Face to Face Home Orders: I certify that a physician or a nurse practitioner or physician's assistant in nursing has had a rcce-ko-awos encounter with this patient on the date of this order due to the diagnosis listed, which relates to the primary reason the patient requires home oxygen. Alternative treatments have been tried, or considered, and deemed ineffective. It is anticipated that supplemental oxygen will result in improvement with treatment. Home oxygen qualifying diagnosis: hypoxia and COPD SpO2 on room air (%): 79 Frequency of home oxygen needed: continuous Home oxygen liters per minute: 2 Home oxygen delivery device: nasal cannula Concentrator: Yes E-tanks for mobility and back up: Yes If ordering portable O2, is the patient mobile in the home?: Yes I certify that, based on these findings, the home oxygen is medically necessary for this patient for the following length of time. Length of time home oxygen needed: 1 month
--- NOTE | 2018-09-16 16:00 | HOSPPROG ---
Hospitalist Progress Note Assessment/Plan: Subjective Follow-up on COPD and low blood pressures. No acute events overnight. Patient' s blood pressures did improve after a dose of 40 mg of prednisone yesterday. He had suspected adrenal insufficiency playing a role after his surgery. We discussed resuming his normal dose of prednisone which is 10 mg daily. I did advise obtaining a home blood pressure cuff and that if he found his blood pressures were running low that he may want to increase prednisone to 20 mg daily for 2-3 days as he recovers from his surgery. If his was present at the bedside as well. Objective Temperature 36.9 blood pressure 108/60 heart rate 90 respirations 14 satting 93 % on 2 L. Exam General-awake alert conversant no acute distress Heart-regular rate and rhythm no murmurs Lungs-Clear to auscultation with normal respiratory effort Abdomen-soft nontender nondistended normal bowel sounds -no Hilario catheter in place Extremities-no significant pitting edema or calf pain with palpation, contractures of hands noted Skin-no concerning skin rashes noted, surgical site on his back appears to be healing well Labs as detailed below Assessment and plan COPD-stable by lung exam today. Continue current prednisone 10 mg daily along with Spiriva. Adrenal insufficiency-suspected secondary to stress from surgery. He seems to have been done reasonably well overnight with the increased dose of prednisone yesterday. I recommend that we continue to use prednisone at 10 mg daily which is his normal daily dose. I advised checking home blood pressures once he returns to home. Acute hypoxic respiratory failure-patient is being discharged with continuous oxygen and will have follow-up with his driller helper. Diabetes mellitus type 2-reportedly related to prednisone use. Hyperlipidemia-atorvastatin. BPH-Flomax. Scleroderma with Raynaud's phenomenon-patient is on amlodipine 2.5 mg daily. DVT prophylaxis-compression devices used during this hospitalization. Disposition-patient appears stable for discharge to home with home physical therapy plan for tomorrow. Objective: Vital Signs Temp Pulse Resp BP Pulse Ox 36.9 C 90 14 108/60 93 09/16/18 07:43 09/16/18 10:55 09/16/18 10:55 09/16/18 09:35 09/16/18 10:55 Laboratory Results 09/14/18 04:23 09/14/18 04:23 09/15/18 09/16/1809/17/19 05:59 05:59 05:59 Intake Total 500 Output Total 8562 775 Yrjnwvc -3105 -775 ICD10 Worksheet Patient Problems: Problems Problem Status Onset Arthrodesis status Acute Lumbar radicular pain Acute Lumbar stenosis Acute
--- NOTE | 2018-09-17 10:31 | ASDISCHSUM ---
Discharge Information Plan Status:Home with Home Health Medically Cleared to Leave: Discharge Date:09/16/2018 01:57 PM CM D/C Disposition: ADT D/C Disposition:Home Health Service Projected Discharge Date:09/15/2018 11:00 AM Transportation at D/C: Discharge Delay Reason: Follow-Up Date:09/15/2018 11:00 AM Discharge Slot: Final Diagnosis: Placement Information Referral Type:*Home Health Care Services Referral ID:[id number] Provider Name:[facility] ([facility]) Address 1:[address] [address] Address 2: City:[place] Selection Factors: State:[place] Patient Contact Information Contact Name:LOLY Relationship: Address:[address] City:[facility] Phone: State/Zip Code:[place] [address] Email: Financial Information Financial Class:Medicare Primary Plan Desc:MEDICARE INPATIENT Primary Plan Number:[id number] Secondary Plan Desc:[employer]/MDR SUPPLEMENT Secondary Plan Number:[id number] Assessment Information LACE LACE Length of stay for Answers: 3 days current admission Acuity / Level of Answers: Yes Care: Did the patient have an inpatient admission? Comorbidities - select Answers: Chronic pulmonary disease all that apply Diabetes (uncontrolled or controlled) Opioid dependence / Chronic pain Other Notes: HTN # of Emergency department Answers: 0 visits in the last 6 months Score: 14 Date Signed: 09/16/2018 09:29 AM Electronically Signed By:Batsheva Cruz RN [facility] CM Progress Note CM Note CM Note Notes: Pt had planned spinal surgery, resides with [facility]. OT/PT rec home. Pt was pre-arranged with [facility] and he does want [facility]. Referral sent to [facility] in [employer]. [facility] has protocol with MD so no orders required at d/c. CM to follow. D/c plan of care: Home with [facility] PT Date Signed: 09/14/2018 01:56 PM Electronically Signed By:KATHERINE Garcia [facility] CM Progress Note CM Note CM Note Notes: Cindy from [facility] on site today - confirmed we are still set for d/c home with [facility] PT. Per protocol with MD, no orders needed upon d/c for [facility]. Cindy does request we send any pertinent information on day of d/c. Plan: [facility] PT Date Signed: 09/15/2018 02:30 PM Electronically Signed By:Subha Berman RN Case Management Discharge Plan Note Case Management Discharge Discharge Order Complete? Answers: Yes Patient to Obtain Answers: Independently Medications Transportation Arranged Answers: Family/Friends Faxed Final Orders Answers: Yes Family Notified Answers: Yes Discharge Comments Notes: Patient discharged home with family. Home health through [facility]. Date Signed: 09/16/2018 09:31 AM Electronically Signed By:Batsheva Cruz RN Intervention Information Intervention Type:*IM-Signed Date of Service:09/15/2018 02:38 PM Patient Type:Inpatient Staff Member:Taylor Pineda Hours: Discipline: Severity: Comment:
--- NOTE | 2018-09-21 08:13 | GDS ---
[f rep st] DISCHARGE SUMMARY Discharged to home with home health service, not [facility]. PRIMARY DIAGNOSES: Lumbar degenerative disk disease, L4-5, L5-S1. Severe bilateral lumbosacral radi culopathy, left greater than right. Severe spinal stenosis at L4-5. Severe bilateral facet arthropa thy, L4-5. Severe right foraminal stenosis, L4-5. Severe left foraminal stenosis, L5-S1. OPERATION/PROCEDURES: Posterior lateral intervertebral arthrodesis at L4-5, L5-S1 with bilateral dec ompressions, L4-5, L5-S1. Posterior segmental instrumentation, L4 through S1. Placement of biomecha nical intervertebral device at 2 levels, L4-5, L5-S1, with same-incision bone graft harvest. Occurre d with Dr. Contreras Worley at [facility] on 09/13/2018. HOSPITAL COURSE: The patient came to the office at [facility] complaining of s evere bilateral lumbosacral radiculopathy. MRI demonstrated really remarkable terrible degenerative disk disease at 2 levels at L4-5, L5-S1 and degenerative right-sided tilt of L4 at L5 with very sever e right foraminal stenosis. There was also severe left foraminal stenosis at L5-S1. MRI demonstrate d a free disk fragment on the left at L5-S1, and suggestion for a 2-level lumbar fusion was given to the patient. Patient understood the risks. He underwent the above-mentioned procedure, and he karine ated it well. He was admitted postoperatively. We did consult Internal Medicine who saw him as well for comanagement of his medical issues. 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 He is on metformin. He does have a history of COPD. He is on prednisone for this, and he also has scleroderma and Rayn aud disease. Internal Medicine helped in comanagement of his medical issues. We appreciate their in put and care. The patient underwent some postoperative x-rays on 09/14/2018, which showed good align ment of the fusion from L4-S1. There were no complications noted. The patient was seen on a daily b asis. We did work with the hospitalist service. The patient did have some issues with his breathing and COPD. He required home oxygen at the recommendations from RT, Nursing and hospitalist service. His pain was well controlled with oral pain medicine. He noted improvement after his surgery, espec ially with his leg symptoms. He did have some expected lower back pain. He was fit for a brace, was well fitting. His incision was clean, dry, intact. He had a SANJANA that was placed in the operating ro om and removed subsequently. Patient was agreeable for discharge home, was discharged home with home care. Patient will follow up with us in the office. CONSULTS: Internal Medicine. COMPLICATIONS: None. DISCHARGE CONDITION: Stable and improved. DISCHARGE INSTRUCTIONS: Standard discharge instructions given to patient following an instrumented l umbar fusion. We talked about worsening symptoms, new pain, weakness, numbness, tingling, loss of kris wel or bladder control, problems with gait or balance. He will follow up with us in the office in 2 weeks and then likely will see us at 2 months with x-rays, 3-6 months, 9 months to a year, year and a half, and 2 years with x-rays when clinically appropriate. All questions and concerns were answered . Patient understands and agrees. /[id number]/MODL
== END 2018-09-16 13:57 | disposition home health service (06) | DRG 454 ==
LOC: F3N 09-13 07:39
PROVIDERS: ADMIT Neurological Surgery; ATTEND Neurological Surgery
PROC: 01NB0ZZ Release Lumbar Nerve, Open Approach (ICD-10-PCS; principal; 2018-09-13 09:30)
PROC: 0SG1071 Fusion of 2 or more Lumbar Vertebral Joints with Autologous Tissue Substitute, Posterior Approach, Posterior Column, Open Approach (ICD-10-PCS; principal; 2018-09-13 09:30)
PROC: 0ST40ZZ Resection of Lumbosacral Disc, Open Approach (ICD-10-PCS; principal; 2018-09-13 09:30)
PROC: 0SG10AJ Fusion of 2 or more Lumbar Vertebral Joints with Interbody Fusion Device, Posterior Approach, Anterior Column, Open Approach (ICD-10-PCS; principal; 2018-09-13 09:30)
PROC: 4A1004G Monitoring of Central Nervous Electrical Activity, Intraoperative, Open Approach (ICD-10-PCS; principal; 2018-09-13 09:30)
PROC: 01NR0ZZ Release Sacral Nerve, Open Approach (ICD-10-PCS; principal; 2018-09-13 09:30)
PROC: 8E0WXBZ Computer Assisted Procedure of Trunk Region (ICD-10-PCS; principal; 2018-09-13 09:30)
PROC: 3E0V0GB Introduction of Recombinant Bone Morphogenetic Protein into Bones, Open Approach (ICD-10-PCS; principal; 2018-09-13 09:30)
PROC: 0ST20ZZ Resection of Lumbar Vertebral Disc, Open Approach (ICD-10-PCS; principal; 2018-09-13 09:30)
DX: M51.17 Intervertebral disc disorders with radiculopathy, lumbosacral region (principal); M47.27 Other spondylosis with radiculopathy, lumbosacral region; I95.81 Postprocedural hypotension; E27.49 Other adrenocortical insufficiency; Z79.52 Long term (current) use of systemic steroids; E09.9 Drug or chemical induced diabetes mellitus without complications; Z79.84 Long term (current) use of oral hypoglycemic drugs; J44.9 Chronic obstructive pulmonary disease, unspecified; Z87.891 Personal history of nicotine dependence; E78.5 Hyperlipidemia, unspecified; I73.00 Raynaud's syndrome without gangrene; M34.9 Systemic sclerosis, unspecified; N40.0 Benign prostatic hyperplasia without lower urinary tract symptoms
CPT/HCPCS: 97116-GP; 97161-GP; 97166-GO; 97535-GO; C1713; J0171; J0690; J1100; J1170; J1650; J2001; J2370; J2405; J2704; J3010; J3360; J7512